=== PATIENT | male | born 1985 | race American Indian/Alaskan Native ===

== ENCOUNTER 2018-01-10 09:53 | Emergency (ER) | payer SELFPAY ==
[2018-01-10 10:09] VITALS: BP 110/71
--- NOTE | 2018-01-10 12:27 | Emergency Department Report ---
ED Abdominal Pain HPI - General Chief Complaint: Abdominal Pain Stated Complaint: ABD PAIN Time Seen by Provider: 01/10/18 11:59 Source: patient Mode of arrival: Ambulatory Limitations: No Limitations - History of Present Illness Initial Comments: Patient is a 32-year-old black male who is complaining of some left lower abdominal discomfort. Patient states he hasn't had a bowel movement in approximately 4 days. He has been straining trying to have a bowel movement. Patient denies any nausea vomiting fevers or chills. Patient states the pain is crampy in nature 9 out of 10 in severity. - Related Data Previous Rx's Medication Instructions Recorded Last Taken Type oxyCODONE /ACETAMINOPHEN [Percocet 1 tab PO Q6HR PRN #20 tablet 05/03/13 Unknown Rx 5/325 mg] Cephalexin [Keflex] 500 mg PO Q6H #28 capsule 05/07/13 Unknown Rx Oxycodone HCl/Acetaminophen 1 each PO Q4-6H PRN #30 tablet 05/07/13 Unknown Rx [Percocet 10-325 mg Tablet] Ibuprofen [Motrin] 800 mg PO Q8H PRN #30 tablet 09/06/14 Unknown Rx Tramadol HCl [traMADol] 50 mg PO Q6HR PRN #20 tablet 09/06/14 Unknown Rx ALBUTEROL Inhaler (OR & NICU) 1 puff IH Q4HR #1 inha 02/19/15 Unknown Rx [ProAir HFA Inhaler] Azithromycin [Zithromax Z-GEORGI] 250 mg PO DAILY #6 tab 02/19/15 Unknown Rx Acetamin/Codeine 120-12Mg/5 ml 10 ml PO TID PRN #60 ml 02/21/15 Unknown Rx [Tylenol/Codeine 120-12 mg/5 ml] Prednisone [predniSONE 10 mg 10 mg PO .TAPER #1 tab.ds.pk 02/21/15 Unknown Rx (6-Day Pack, 21 Tabs)] Dicyclomine [Bentyl] 10 mg PO QID #15 capsule 01/10/18 Unknown Rx Docusate Sodium [Colace] 100 mg PO BID #30 capsule 01/10/18 Unknown Rx Polyethylene Glycol 3350 [Miralax 17 gm PO QDAY #5 packet 01/10/18 Unknown Rx 3350] Allergies Allergy/AdvReac Type Severity Reaction Status Date / Time No Known Allergies Allergy Verified 01/10/18 10:06 ED Review of Systems ROS: Stated complaint: ABD PAIN Other details as noted in HPI Comment: All other systems reviewed and negative ED Past Medical Hx - Past Medical History Hx Asthma: Yes - Social History Smoking Status: Current Every Day Smoker Substance Use Type: None - Medications Home Medications: Home Medications Medication Instructions Recorded Confirmed Last Taken Type oxyCODONE /ACETAMINOPHEN [Percocet 1 tab PO Q6HR PRN #20 tablet 05/03/13 Unknown Rx 5/325 mg] Cephalexin [Keflex] 500 mg PO Q6H #28 capsule 05/07/13 Unknown Rx Oxycodone HCl/Acetaminophen 1 each PO Q4-6H PRN #30 tablet 05/07/13 Unknown Rx [Percocet 10-325 mg Tablet] Ibuprofen [Motrin] 800 mg PO Q8H PRN #30 tablet 09/06/14 Unknown Rx Tramadol HCl [traMADol] 50 mg PO Q6HR PRN #20 tablet 09/06/14 Unknown Rx ALBUTEROL Inhaler (OR & NICU) 1 puff IH Q4HR #1 inha 02/19/15 Unknown Rx [ProAir HFA Inhaler] Azithromycin [Zithromax Z-GEORGI] 250 mg PO DAILY #6 tab 02/19/15 Unknown Rx Acetamin/Codeine 120-12Mg/5 ml 10 ml PO TID PRN #60 ml 02/21/15 Unknown Rx [Tylenol/Codeine 120-12 mg/5 ml] Prednisone [predniSONE 10 mg 10 mg PO .TAPER #1 tab.ds.pk 02/21/15 Unknown Rx (6-Day Pack, 21 Tabs)] Dicyclomine [Bentyl] 10 mg PO QID #15 capsule 01/10/18 Unknown Rx Docusate Sodium [Colace] 100 mg PO BID #30 capsule 01/10/18 Unknown Rx Polyethylene Glycol 3350 [Miralax 17 gm PO QDAY #5 packet 01/10/18 Unknown Rx 3350] ED Physical Exam - General Limitations: No Limitations General appearance: alert, in no apparent distress - Head Head exam: Present: atraumatic, normocephalic - Eye Eye exam: Present: normal appearance - ENT ENT exam: Present: mucous membranes moist - Neck Neck exam: Present: normal inspection - Respiratory Respiratory exam: Present: normal lung sounds bilaterally. Absent: respiratory distress, wheezes, rales, rhonchi - Cardiovascular Cardiovascular Exam: Present: regular rate, normal rhythm. Absent: systolic murmur, diastolic murmur, rubs, gallop - GI/Abdominal GI/Abdominal exam: Present: soft, tenderness (LLQ mild), normal bowel sounds. Absent: distended, guarding, rebound, rigid - Rectal Rectal exam: Present: deferred - Extremities Exam Extremities exam: Present: normal inspection - Back Exam Back exam: Present: normal inspection - Neurological Exam Neurological exam: Present: alert, oriented X3 - Psychiatric Psychiatric exam: Present: normal affect, normal mood - Skin Skin exam: Present: warm, dry, intact, normal color. Absent: rash ED Course Vital Signs 01/10/18 10:06 Temperature 98.1 F Pulse Rate 59 L Respiratory 18 Rate Blood Pressure 110/71 O2 Sat by Pulse 100 Oximetry ED Medical Decision Making - Medical Decision Making Patient clinically has some constipation. Patient has good bowel sounds is not distended do not suspect obstruction. Patient be discharged home with Mr. symptomatic relief. Critical care attestation.: If time is entered above; I have spent that time in minutes in the direct care of this critically ill patient, excluding procedure time. ED Disposition Clinical Impression: Constipation Qualifiers: Constipation type: slow transit constipation Qualified Code(s): K59.01 - Slow transit constipation Disposition: - TO HOME OR SELFCARE Is pt being admited?: No Does the pt Need Aspirin: No Condition: Stable Instructions: Constipation (ED), High Fiber Diet (ED) Referrals: PRIMARY CARE, [Primary Care Provider] - 3-5 Days Forms: Work/School Release Form(ED) Time of Disposition: 12:27
== END 2018-01-10 12:52 | disposition home or self-care (01) ==
LOC: ED 09:53
DX: K59.01 Slow transit constipation (principal); J45.909 Unspecified asthma, uncomplicated; F17.200 Nicotine dependence, unspecified, uncomplicated
CPT/HCPCS: 99282

== ENCOUNTER 2018-01-18 09:39 | Emergency (ER) | payer SELFPAY ==
[2018-01-18 10:20] VITALS: BP 116/69
[2018-01-18] MEDS ORDERED: TORADOL IM ONE (11:09)
[2018-01-18] MEDS ORDERED: FLEXERIL PO ONE (11:09)
--- NOTE | 2018-01-18 11:31 | Emergency Department Report ---
ED Back Pain/Injury HPI - General Chief Complaint: Back Pain/Injury Stated Complaint: LOWER BACK PAIN Time Seen by Provider: 01/18/18 11:05 Source: patient Limitations: No Limitations - History of Present Illness Initial Comments: This is a 32-year-old male nontoxic, well nourished in appearance, no acute signs of distress presents to the ED with c/o of acute on chronic lower back pain. Patient stated that when he was bruising his teeth he felt a pop this morning. Patient stated that he does a lot of heavy lifting at work. Patient denies any radiation of pain. Patient denies any trauma. Denies any bladder or bowel instability. Patient denies any urinary symptoms. Denies any fever, chills, nausea, vomiting, headache, stiff neck, chest pain or shortness of breath. Patient denies any numbness or tingling. Denies any allergies. Denies significant past medical history. MD Complaint: back pain -: This morning Similar Symptoms Previously: Yes Place: home Radiation: none Severity: mild Severity scale (0 -10): 8 Quality: aching Consistency: constant Improves With: immobilization Worsens With: movement, walking Associated Symptoms: denies other symptoms. denies: weakness, chest pain, numbness, difficulty walking, cough, difficulty urinating, diaphoresis, incontinence, fever/chills, constipation, headaches, abdominal pain, loss of appetite, malaise, nausea/vomiting, rash, seizure, shortness of breath, syncope - Related Data Previous Rx's Medication Instructions Recorded Last Taken Type oxyCODONE /ACETAMINOPHEN [Percocet 1 tab PO Q6HR PRN #20 tablet 05/03/13 Unknown Rx 5/325 mg] Cephalexin [Keflex] 500 mg PO Q6H #28 capsule 05/07/13 Unknown Rx Oxycodone HCl/Acetaminophen 1 each PO Q4-6H PRN #30 tablet 05/07/13 Unknown Rx [Percocet 10-325 mg Tablet] Ibuprofen [Motrin] 800 mg PO Q8H PRN #30 tablet 09/06/14 Unknown Rx Tramadol HCl [traMADol] 50 mg PO Q6HR PRN #20 tablet 09/06/14 Unknown Rx ALBUTEROL Inhaler (OR & NICU) 1 puff IH Q4HR #1 inha 02/19/15 Unknown Rx [ProAir HFA Inhaler] Azithromycin [Zithromax Z-GEORGI] 250 mg PO DAILY #6 tab 02/19/15 Unknown Rx Acetamin/Codeine 120-12Mg/5 ml 10 ml PO TID PRN #60 ml 02/21/15 Unknown Rx [Tylenol/Codeine 120-12 mg/5 ml] Prednisone [predniSONE 10 mg 10 mg PO .TAPER #1 tab.ds.pk 02/21/15 Unknown Rx (6-Day Pack, 21 Tabs)] Dicyclomine [Bentyl] 10 mg PO QID #15 capsule 01/10/18 Unknown Rx Docusate Sodium [Colace] 100 mg PO BID #30 capsule 01/10/18 Unknown Rx Polyethylene Glycol 3350 [Miralax 17 gm PO QDAY #5 packet 01/10/18 Unknown Rx 3350] Cyclobenzaprine [Flexeril] 10 mg PO QHS PRN #10 tablet 01/18/18 Unknown Rx Ibuprofen [Motrin] 600 mg PO Q8H PRN #30 tablet 01/18/18 Unknown Rx Allergies Allergy/AdvReac Type Severity Reaction Status Date / Time No Known Allergies Allergy Verified 01/10/18 10:06 ED Review of Systems ROS: Stated complaint: LOWER BACK PAIN Other details as noted in HPI Constitutional: denies: chills, fever Eyes: denies: eye pain, eye discharge, vision change ENT: denies: ear pain, throat pain Respiratory: denies: cough, shortness of breath, wheezing Cardiovascular: denies: chest pain, palpitations Endocrine: no symptoms reported Gastrointestinal: denies: abdominal pain, nausea, diarrhea Genitourinary: denies: urgency, dysuria Musculoskeletal: back pain. denies: joint swelling, arthralgia Skin: denies: rash, lesions Neurological: denies: headache, weakness, paresthesias Psychiatric: denies: anxiety, depression Hematological/Lymphatic: denies: easy bleeding, easy bruising ED Past Medical Hx - Past Medical History Previous Medical History?: Yes Hx Asthma: Yes - Surgical History Past Surgical History?: No - Social History Smoking Status: Never Smoker Substance Use Type: None - Medications Home Medications: Home Medications Medication Instructions Recorded Confirmed Last Taken Type oxyCODONE /ACETAMINOPHEN [Percocet 1 tab PO Q6HR PRN #20 tablet 05/03/13 Unknown Rx 5/325 mg] Cephalexin [Keflex] 500 mg PO Q6H #28 capsule 05/07/13 Unknown Rx Oxycodone HCl/Acetaminophen 1 each PO Q4-6H PRN #30 tablet 05/07/13 Unknown Rx [Percocet 10-325 mg Tablet] Ibuprofen [Motrin] 800 mg PO Q8H PRN #30 tablet 09/06/14 Unknown Rx Tramadol HCl [traMADol] 50 mg PO Q6HR PRN #20 tablet 09/06/14 Unknown Rx ALBUTEROL Inhaler (OR & NICU) 1 puff IH Q4HR #1 inha 02/19/15 Unknown Rx [ProAir HFA Inhaler] Azithromycin [Zithromax Z-GEORGI] 250 mg PO DAILY #6 tab 02/19/15 Unknown Rx Acetamin/Codeine 120-12Mg/5 ml 10 ml PO TID PRN #60 ml 02/21/15 Unknown Rx [Tylenol/Codeine 120-12 mg/5 ml] Prednisone [predniSONE 10 mg 10 mg PO .TAPER #1 tab.ds.pk 02/21/15 Unknown Rx (6-Day Pack, 21 Tabs)] Dicyclomine [Bentyl] 10 mg PO QID #15 capsule 01/10/18 Unknown Rx Docusate Sodium [Colace] 100 mg PO BID #30 capsule 01/10/18 Unknown Rx Polyethylene Glycol 3350 [Miralax 17 gm PO QDAY #5 packet 01/10/18 Unknown Rx 3350] Cyclobenzaprine [Flexeril] 10 mg PO QHS PRN #10 tablet 01/18/18 Unknown Rx Ibuprofen [Motrin] 600 mg PO Q8H PRN #30 tablet 01/18/18 Unknown Rx ED Physical Exam - General Limitations: No Limitations General appearance: alert, in no apparent distress - Head Head exam: Present: atraumatic, normocephalic - Eye Eye exam: Present: normal appearance - ENT ENT exam: Present: mucous membranes moist - Neck Neck exam: Present: normal inspection - Respiratory Respiratory exam: Present: normal lung sounds bilaterally. Absent: respiratory distress, wheezes, rales, rhonchi, stridor, chest wall tenderness, accessory muscle use, decreased breath sounds, prolonged expiratory - Cardiovascular Cardiovascular Exam: Present: regular rate, normal rhythm, normal heart sounds. Absent: bradycardia, tachycardia, irregular rhythm, systolic murmur, diastolic murmur, rubs, gallop - GI/Abdominal GI/Abdominal exam: Present: soft, normal bowel sounds. Absent: distended, tenderness, guarding, rebound, rigid, diminished bowel sounds - Rectal Rectal exam: Present: deferred - Extremities Exam Extremities exam: Present: normal inspection, full ROM, normal capillary refill. Absent: tenderness - Back Exam Back exam: Present: normal inspection, full ROM, paraspinal tenderness (throcic and lumbar paraspainl). Absent: tenderness, CVA tenderness (R), CVA tenderness (L), muscle spasm, vertebral tenderness, rash noted - Expanded Back Exam Expanded Back exam: Absent: saddle anesthesia Back exam: Negative Straight Leg Raising: Left, Right - Neurological Exam Neurological exam: Present: alert, oriented X3, normal gait - Psychiatric Psychiatric exam: Present: normal affect, normal mood - Skin Skin exam: Present: warm, dry, intact, normal color. Absent: rash ED Course Vital Signs 01/18/18 01/18/18 10:17 11:22 Temperature 98.7 F Pulse Rate 74 Respiratory 18 18 Rate Blood Pressure 116/69 O2 Sat by Pulse 98 Oximetry - Reevaluation(s) Reevaluation #1: 01/18/18 11:33 Patient is speaking in full sentence swith no questions noted by the patient. ED Medical Decision Making - Medical Decision Making This is a 32-year-old male that presents with low back strain. Patient is stable was examined by me. There is no spinal tenderness. There is no cauda equina syndrome during examination. No bladder or bowel instability. Patient received Toradol 60 mg IM and Flexdeil in the ED which preceded his symptoms has resolved and subsided. A CT obtaind but patient refused. Patient was educated on risks and benefits of obtaining CT studies the patient refused to sign AMA form. Patient is discharged with muscle relaxant and Motrin. Patient was instructed not to operate any machinery while taking muscle relaxant as they cause her drowsiness. Patient was referred to Follow-up with a primary care doctor in 3-5 days or if symptoms worsen and continue return to emergency room as soon as possible. At time of signing AMA, the patient does not seem toxic or ill in appearance. No acute signs of distress noted. Patient agrees to treatment plan of care. No further questions noted by the patient. This chart is dictated with using Dragon Dictation Program Critical care attestation.: If time is entered above; I have spent that time in minutes in the direct care of this critically ill patient, excluding procedure time. ED Disposition Clinical Impression: Low back strain Qualifiers: Encounter type: initial encounter Qualified Code(s): S39.012A - Strain of muscle, fascia and tendon of lower back, initial encounter Disposition: LEFT AGAINST MED ADVICE Is pt being admited?: No Does the pt Need Aspirin: No Condition: Stable Instructions: Low Back Strain (ED), Cyclobenzaprine (By mouth) Additional Instructions: Follow-up with a primary care doctor in 3-5 days or if symptoms worsen and continue return to emergency room as soon as possible. Take ibuprofen and Flexeril as prescribed. Do not operate heavy machinery while taking Flexeril due to sedation Prescriptions: Cyclobenzaprine [Flexeril] 10 mg PO QHS PRN #10 tablet PRN Reason: Muscle Spasm Ibuprofen [Motrin] 600 mg PO Q8H PRN #30 tablet PRN Reason: Pain Referrals: PRIMARY CAREMD [Primary Care Provider] - 3-5 Days JEANNE BASHIR MD [Staff Physician] - 3-5 Days [facility] [Outside] - 3-5 Days [facility] [Outside] - 3-5 Days Forms: Work/School Release Form(ED)
== END 2018-01-18 11:43 | disposition left against medical advice (07) ==
LOC: ED 09:39
DX: S39.012A Strain of muscle, fascia and tendon of lower back, initial encounter (principal); J45.909 Unspecified asthma, uncomplicated; X58.XXXA Exposure to other specified factors, initial encounter; Y93.89 Activity, other specified; Y92.009 Unspecified place in unspecified non-institutional (private) residence as the place of occurrence of the external cause; Y99.8 Other external cause status
CPT/HCPCS: 96372; 99282; J1885

== ENCOUNTER 2018-08-01 11:32 | Emergency (ER) | payer SELFPAY ==
[2018-08-01] MEDS ORDERED: NORCO 5/325 PO ONE (12:13)
--- NOTE | 2018-08-01 12:19 | Emergency Department Report ---
ED Head Trauma HPI - General Chief complaint: Head Injury Stated complaint: HOLE IN HEAD Time Seen by Provider: 08/01/18 12:05 Source: patient Mode of arrival: Ambulatory Limitations: No Limitations - History of Present Illness Initial comments: 33-year-old male states the pablo of his car fell onto his head. Denies LOC. Reports laceration. Denies nausea, vomiting. MD Complaint: head injury -: minutes(s) (45) Mechanism of Injury: other (pablo of car fell onto top of head) Location: other (top of head) Loss of Consciousness: no Severity: moderate Consistency: constant Other Injuries: none Associated Symptoms: denies: confusion, vision changes, nausea, vomiting, neck pain - Related Data Previous Rx's Medication Instructions Recorded Last Taken Type oxyCODONE /ACETAMINOPHEN [Percocet 1 tab PO Q6HR PRN #20 tablet 05/03/13 Unknown Rx 5/325 mg] Cephalexin [Keflex] 500 mg PO Q6H #28 capsule 05/07/13 Unknown Rx Oxycodone HCl/Acetaminophen 1 each PO Q4-6H PRN #30 tablet 05/07/13 Unknown Rx [Percocet 10-325 mg Tablet] Ibuprofen [Motrin] 800 mg PO Q8H PRN #30 tablet 09/06/14 Unknown Rx Tramadol HCl [traMADol] 50 mg PO Q6HR PRN #20 tablet 09/06/14 Unknown Rx ALBUTEROL Inhaler (OR & NICU) 1 puff IH Q4HR #1 inha 02/19/15 Unknown Rx [ProAir HFA Inhaler] Azithromycin [Zithromax Z-GEORGI] 250 mg PO DAILY #6 tab 02/19/15 Unknown Rx Acetamin/Codeine 120-12Mg/5 ml 10 ml PO TID PRN #60 ml 02/21/15 Unknown Rx [Tylenol/Codeine 120-12 mg/5 ml] Prednisone [predniSONE 10 mg 10 mg PO .TAPER #1 tab.ds.pk 02/21/15 Unknown Rx (6-Day Pack, 21 Tabs)] Dicyclomine [Bentyl] 10 mg PO QID #15 capsule 01/10/18 Unknown Rx Docusate Sodium [Colace] 100 mg PO BID #30 capsule 01/10/18 Unknown Rx Polyethylene Glycol 3350 [Miralax 17 gm PO QDAY #5 packet 01/10/18 Unknown Rx 3350] Cyclobenzaprine [Flexeril] 10 mg PO QHS PRN #10 tablet 01/18/18 Unknown Rx Ibuprofen [Motrin] 600 mg PO Q8H PRN #30 tablet 01/18/18 Unknown Rx Naproxen [Naprosyn] 500 mg PO BID #20 tablet 08/01/18 Unknown Rx traMADol [Ultram] 50 mg PO Q6HR PRN #7 tablet 08/01/18 Unknown Rx Allergies/Adverse reactions: Allergies Allergy/AdvReac Type Severity Reaction Status Date / Time No Known Allergies Allergy Verified 01/10/18 10:06 ED Review of Systems ROS: Stated complaint: HOLE IN HEAD Other details as noted in HPI Comment: All other systems reviewed and negative Gastrointestinal: denies: nausea, vomiting Neurological: headache ED Past Medical Hx - Past Medical History Previous Medical History?: Yes Hx Asthma: Yes - Surgical History Past Surgical History?: No - Social History Smoking Status: Current Every Day Smoker - Medications Home Medications: Home Medications Medication Instructions Recorded Confirmed Last Taken Type oxyCODONE /ACETAMINOPHEN [Percocet 1 tab PO Q6HR PRN #20 tablet 05/03/13 05/07/13 Unknown Rx 5/325 mg] Cephalexin [Keflex] 500 mg PO Q6H #28 capsule 05/07/13 Unknown Rx Oxycodone HCl/Acetaminophen 1 each PO Q4-6H PRN #30 tablet 05/07/13 Unknown Rx [Percocet 10-325 mg Tablet] Ibuprofen [Motrin] 800 mg PO Q8H PRN #30 tablet 09/06/14 Unknown Rx Tramadol HCl [traMADol] 50 mg PO Q6HR PRN #20 tablet 09/06/14 Unknown Rx ALBUTEROL Inhaler (OR & NICU) 1 puff IH Q4HR #1 inha 02/19/15 Unknown Rx [ProAir HFA Inhaler] Azithromycin [Zithromax Z-GEORGI] 250 mg PO DAILY #6 tab 02/19/15 Unknown Rx Acetamin/Codeine 120-12Mg/5 ml 10 ml PO TID PRN #60 ml 02/21/15 Unknown Rx [Tylenol/Codeine 120-12 mg/5 ml] Prednisone [predniSONE 10 mg 10 mg PO .TAPER #1 tab.ds.pk 02/21/15 Unknown Rx (6-Day Pack, 21 Tabs)] Dicyclomine [Bentyl] 10 mg PO QID #15 capsule 01/10/18 Unknown Rx Docusate Sodium [Colace] 100 mg PO BID #30 capsule 01/10/18 Unknown Rx Polyethylene Glycol 3350 [Miralax 17 gm PO QDAY #5 packet 01/10/18 Unknown Rx 3350] Cyclobenzaprine [Flexeril] 10 mg PO QHS PRN #10 tablet 01/18/18 Unknown Rx Ibuprofen [Motrin] 600 mg PO Q8H PRN #30 tablet 01/18/18 Unknown Rx Naproxen [Naprosyn] 500 mg PO BID #20 tablet 08/01/18 Unknown Rx traMADol [Ultram] 50 mg PO Q6HR PRN #7 tablet 08/01/18 Unknown Rx ED Physical Exam - General Limitations: No Limitations General appearance: alert, in no apparent distress - Head Head exam: Present: other (1 cm superficial laceration to top of head) - Eye Eye exam: Present: normal appearance, PERRL, EOMI - ENT ENT exam: Present: mucous membranes moist - Neck Neck exam: Present: normal inspection - Respiratory Respiratory exam: Present: normal lung sounds bilaterally. Absent: respiratory distress - Cardiovascular Cardiovascular Exam: Present: regular rate, normal rhythm - GI/Abdominal GI/Abdominal exam: Absent: distended - Extremities Exam Extremities exam: Present: normal inspection - Neurological Exam Neurological exam: Present: alert, oriented X3, CN II-XII intact, other (GCS 15). Absent: motor sensory deficit - Psychiatric Psychiatric exam: Present: normal affect, normal mood - Skin Skin exam: Present: warm, dry, intact, normal color ED Course Vital Signs 08/01/18 08/01/18 08/01/18 11:38 13:23 14:06 Temperature 98.2 F 97.4 F L Pulse Rate 74 77 Respiratory 20 18 18 Rate Blood Pressure 114/64 Blood Pressure 117/77 [Left] O2 Sat by Pulse 96 99 99 Oximetry - Consultations Consultation #1: 08/01/18 13:57 CT sent to teleradiology, however, study not read yet. Dr Soto, on-site radiologist contacted and reviewed study. States normal CT. - Radiology Data Radiology results: report reviewed, image reviewed - Medical Decision Making CT head negative. 1 cm superficial scalp laceration, does not require sutures. GCS remains 15. Will discharge at this time. Return precautions given. - Differential Diagnosis laceration, intracranial bleed, concussion Critical care attestation.: If time is entered above; I have spent that time in minutes in the direct care of this critically ill patient, excluding procedure time. ED Disposition Clinical Impression: Head injury, Scalp laceration Disposition: DC-01 TO HOME OR SELFCARE Is pt being admited?: No Condition: Stable Instructions: Laceration (ED), Minor Head Injury (ED) Prescriptions: Naproxen [Naprosyn] 500 mg PO BID #20 tablet traMADol [Ultram] 50 mg PO Q6HR PRN #7 tablet PRN Reason: Pain Referrals: GALILEO BURDEN MD [Primary Care Provider] - 3-5 Days Time of Disposition: 13:59
[2018-08-01] MEDS ORDERED: TRIPLE ANTIBIOTIC TP ONE (13:04)
[2018-08-01 13:25] VITALS: BP 117/77
--- NOTE | 2018-08-01 14:08 | Cat Scan Report ---
PROCEDURE: CT HEAD/BRAIN WO CON TECHNIQUE: Multiple continuous axial images were obtained from the skull base to the vertex without administration of IV contrast HISTORY: injury COMPARISONS: None. FINDINGS: There is normal brain volume for the patient's age. There is normal dick-white differentiation. There is no parenchymal hemorrhage or extra-axial fluid collection. No mass or mass effect. No acute radha torial infarct. The ventricles are midline. The subarachnoid spaces and basilar cisterns are clear. T here is no skull fracture. The paranasal sinuses and mastoid air cells are clear. IMPRESSION: No acute intracranial abnormality. This document is electronically signed by Eunice Ryan MD., August 01 2018 02:05:42 PM ET
== END 2018-08-01 14:23 | disposition home or self-care (01) ==
LOC: ED 11:32
DX: S01.01XA Laceration without foreign body of scalp, initial encounter (principal); J45.909 Unspecified asthma, uncomplicated; F17.200 Nicotine dependence, unspecified, uncomplicated; Z79.899 Other long term (current) drug therapy; W20.8XXA Other cause of strike by thrown, projected or falling object, initial encounter; Y93.89 Activity, other specified; Y92.810 Car as the place of occurrence of the external cause; Y99.8 Other external cause status
CPT/HCPCS: 70450; 99283; A6250

== ENCOUNTER 2019-08-26 06:21 | Emergency (ER) | payer SELFPAY ==
[2019-08-26 06:26] VITALS: BP 110/75
--- NOTE | 2019-08-26 07:06 | XRay Report ---
RIGHT HAND 3 VIEWS INDICATION / CLINICAL INFORMATION: fall, pain, swelling COMPARISON: None available. FINDINGS: BONES / JOINT(S): No acute fracture or subluxation. No significant arthritis. SOFT TISSUES: No significant abnormality. ADDITIONAL FINDINGS: None. Signer Name: Esteban Argueta MD Signed: 08/26/2019 6:59 AM Workstation Name: [id number]
--- NOTE | 2019-08-26 07:14 | Emergency Department Report ---
Upper Extremity - [facility] Chief Complaint: Extremity Injury, Upper Stated Complaint: RIGHT HAND INJURY Time Seen by Provider: 08/26/19 07:07 Upper Extremity: Right Little Finger Occurred When: Today Mechanism: Fall Severity: severe Symptoms: Yes Pain with Movement, Yes Limited Range of Movement, No Deformity, No Numbness, No Weakness, No Swelling, No Bruising/Ecchymosis, No Laceration or Abrasion Other History: 34-year-old -[place] Citizen male presents to the emergency room stating that he fell down the steps and caught himself with his right hand and now has pain and swelling. Patient states he is unable to move his pinky finger. Patient states that this happened approximate 45 minutes prior to arrival. Patient reports no other past medical history that he takes any medications on a daily basis and no known drug allergies. ED Review of Systems ROS: Stated complaint: RIGHT HAND INJURY Other details as noted in HPI ED Past Medical Hx - Past Medical History Hx Asthma: Yes - Surgical History Past Surgical History?: No - Social History Smoking Status: Never Smoker Substance Use Type: None - Medications Home Medications: Home Medications Medication Instructions Recorded Confirmed Last Taken Type oxyCODONE /ACETAMINOPHEN [Percocet 1 tab PO Q6HR PRN #20 tablet 05/03/13 05/07/13 Unknown Rx 5/325 mg] Cephalexin [Keflex] 500 mg PO Q6H #28 capsule 05/07/13 Unknown Rx Oxycodone HCl/Acetaminophen 1 each PO Q4-6H PRN #30 tablet 05/07/13 Unknown Rx [Percocet 10-325 mg Tablet] Ibuprofen [Motrin] 800 mg PO Q8H PRN #30 tablet 09/06/14 Unknown Rx Tramadol HCl [traMADol] 50 mg PO Q6HR PRN #20 tablet 09/06/14 Unknown Rx Albuterol INH(or & Nicu Only) 1 puff IH Q4HR #1 inha 02/19/15 Unknown Rx [ProAir HFA Inhaler] Azithromycin [Zithromax Z-GEORGI] 250 mg PO DAILY #6 tab 02/19/15 Unknown Rx Acetamin/Codeine 120-12Mg/5 ml 10 ml PO TID PRN #60 ml 02/21/15 Unknown Rx [Tylenol/Codeine 120-12 mg/5 ml] Prednisone [predniSONE 10 mg 10 mg PO .TAPER #1 tab.ds.pk 02/21/15 Unknown Rx (6-Day Pack, 21 Tabs)] Dicyclomine [Bentyl] 10 mg PO QID #15 capsule 01/10/18 Unknown Rx Docusate Sodium [Colace] 100 mg PO BID #30 capsule 01/10/18 Unknown Rx polyethylene glycoL 3350 [Miralax 17 gm PO QDAY #5 packet 01/10/18 Unknown Rx 3350] Cyclobenzaprine [Flexeril] 10 mg PO QHS PRN #10 tablet 01/18/18 Unknown Rx Naproxen [Naprosyn] 500 mg PO BID #20 tablet 08/01/18 Unknown Rx Ibuprofen [Motrin 600 MG tab] 600 mg PO Q8H PRN #30 tablet 08/26/19 Unknown Rx traMADoL [Ultram 50 MG tab] 50 mg PO Q6HR PRN #12 tablet 08/26/19 Unknown Rx Upper Extremity Exam - Exam General: Vital signs noted. No distress. Alert and acting appropriately. Head and Torso: No HEENT Abnormality, No Neck Tenderness, No Chest/Lungs Abnormality, No Abdominal Tenderness, No Back Tenderness Shoulder Exam: Yes Normal Range of Motion in Shoulder, No Shoulder Tenderness, No Clavicle Tenderness, No Shoulder Deformity, No AC Joint Tenderness Arm Exam: No Arm/Humerus Tenderness, No Arm Deformity Elbow: No Elbow Tenderness, No Normal Range of Motion in Elbow, No Elbow Deformity Forearm: No Forearm Tenderness, No Forearm Deformity, No Pain with Pronation, No Pain with Supination Wrist: Yes Normal ROM in Wrist, No Wrist Tenderness, No Wrist Deformity, No Snuffbox Tenderness, No Pain with Axial Thumb Compression Hand: Yes Hand Tenderness, Yes Digit Tenderness, No Hand Deformity, No Normal ROM in Digit(s), No Digit(s) Deformity, No Tendon Dysfunction CMS Exam: No Broken Skin, No Normal Distal Pulses, No Normal Capillary Refill, No Normal Distal Sensation ED Course Vital Signs 08/26/19 06:23 Temperature 97.8 F Pulse Rate 85 Respiratory 18 Rate Blood Pressure 110/75 O2 Sat by Pulse 100 Oximetry ED Medical Decision Making - Radiology Data Radiology results: report reviewed Referring Physician:YANIQUE Muñoz Name:CHUCKY CHASEPatient ID:[id number] of :[id number]:MaleAccession:[id number] Date:8912-20-97Cknvtj Status:Finalized Findings [facility] [address] [place] [address] XRay Report Signed Patient: CHUCKY CHASE MR#: [id number] : 1985 Acct:[id number] Age/Sex: 34 / M ADM Date: 08/26/19 Loc: ED Attending Dr: Ordering Physician: BEAU RONDON Date of Service: 08/26/19 Procedure(s): XR hand 3+V RT Accession Number(s): [id number] cc: BEAU RONDON Fluoro Time In Minutes: RIGHT HAND 3 VIEWS INDICATION / CLINICAL INFORMATION: fall, pain, swelling COMPARISON: None available. FINDINGS: BONES / JOINT(S): No acute fracture or subluxation. No significant arthritis. SOFT TISSUES: No significant abnormality. ADDITIONAL FINDINGS: None. Signer Name: Esteban Argueta MD Signed: 08/26/2019 6:59 AM Workstation Name: [id number] Transcribed By: ES Dictated By: Esteban Argueta MD Electronically Authenticated By: Esteban Argueta MD Signed Date/Time: 08/26/19658 DD/ 7 TD/TT: - Medical Decision Making 34-year-old -[place] Citizen male presents to the emergency room stating that he fell down the steps and caught himself with his right hand and now has pain and swelling. Patient states he is unable to move his pinky finger. Patient states that this happened approximate 45 minutes prior to arrival. Patient reports no other past medical history that he takes any medications on a daily basis and no known drug allergies. X-ray shows no acute abnormalities no fractures or subluxation. It does show some swelling. Discussed with patient results of the chest x-ray. Discussed with patient we will send him home on pain medication but him in a splint and if it does not start to improve in the next 5 to 7 days to follow-up with an orthopedic provider. Critical care attestation.: If time is entered above; I have spent that time in minutes in the direct care of this critically ill patient, excluding procedure time. ED Disposition Clinical Impression: Sprain of right hand Disposition: DC-01 TO HOME OR SELFCARE Is pt being admited?: No Does the pt Need Aspirin: No Condition: Stable Instructions: Hand Sprain (ED) Additional Instructions: X-rays are negative for any fractures or subluxation. Please take pain medication as needed. You can wear the wrist brace for comfort but do not wear for 24 hours as you need to start to move your hand. I am referring you to orthopedic provider if is not improving in the next 5 to 7 days to follow-up with an orthopedic provider. Prescriptions: Ibuprofen [Motrin 600 MG tab] 600 mg PO Q8H PRN #30 tablet PRN Reason: Pain traMADoL [Ultram 50 MG tab] 50 mg PO Q6HR PRN #12 tablet PRN Reason: Pain Referrals: PRIMARY CAREMD [Primary Care Provider] - 3-5 Days BARTOLOME MARSHALL MD [Staff Physician] - 3-5 Days Forms: Work/School Release Form(ED)
[2019-08-26] MEDS ORDERED: IBUPROFEN 800 MG TAB ONE (07:34)
[2019-08-26] MEDS ORDERED: IBUPROFEN 800 MG TAB PO ONE (07:36)
== END 2019-08-26 07:38 | disposition home or self-care (01) ==
LOC: ED 06:21
DX: S63.91XA Sprain of unspecified part of right wrist and hand, initial encounter (principal); J45.909 Unspecified asthma, uncomplicated; Z79.1 Long term (current) use of non-steroidal anti-inflammatories (NSAID); Z79.2 Long term (current) use of antibiotics; Z79.899 Other long term (current) drug therapy; W10.9XXA Fall (on) (from) unspecified stairs and steps, initial encounter; Y93.89 Activity, other specified; Y92.89 Other specified places as the place of occurrence of the external cause; Y99.8 Other external cause status

== ENCOUNTER 2021-12-27 12:37 | Emergency (ER) | payer SELFPAY ==
[2021-12-27 12:58] VITALS: BP 129/67
--- NOTE | 2021-12-27 13:50 | XRay Report ---
RIGHT HAND 3 VIEW(S) INDICATION / CLINICAL INFORMATION: PAIN AND SWELLING COMPARISON: Radiograph dated 08/26/2019 FINDINGS: BONES / JOINT(S): Acute nondisplaced transverse fracture of the midshaft of the little finger metacar pal. No significant arthritis. SOFT TISSUES: No significant abnormality. ADDITIONAL FINDINGS: None. IMPRESSION: 1. Acute nondisplaced little finger metacarpal fracture. Signer Name: Saturnino Stanford MD Signed: 12/27/2021 1:46 PM Workstation Name: [email or web address]
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
[2021-12-27] MEDS ORDERED: SODIUM CHLORIDE 0.9% IRR 1,500 ML BOTTLE IR ONE (20:00)
[2021-12-27] MEDS ORDERED: ONDANSETRON 4 MG ODT TAB PO ONE (20:16)
[2021-12-27] MEDS ORDERED: HYDROcodone/ACETAMINOPHEN 5-325 MG TAB PO ONE (20:17)
[2021-12-27] MEDS ORDERED: SODIUM CHLORIDE IRRI 500 ML 500 ML IR ONE (21:03)
[2021-12-27] MEDS ORDERED: BACITRACIN/POLYMYXIN B OINT 28.35 GM TP ONE (21:35)
== END 2021-12-27 23:15 | disposition home or self-care (01) ==
LOC: ED 12:37
DX: S62.306A Unspecified fracture of fifth metacarpal bone, right hand, initial encounter for closed fracture (principal); S62.32 Displaced fracture of shaft of other metacarpal bone; X58.XXXA Exposure to other specified factors, initial encounter; Y93.89 Activity, other specified; Y92.89 Other specified places as the place of occurrence of the external cause; Y99.8 Other external cause status
CPT/HCPCS: 29125; 73130; 96365; 99284; J0690; 99283; J3490; Q0162